=== PATIENT | female | born 1995 | race Caucasian/White ===

== ENCOUNTER → 2020-07-08 11:16 | Outpatient (BNVA) | payer SELFPAY | PROVIDERS: Family Provider General Practice; Visit Provider Family Medicine | DX: F32.9 Major depressive disorder, single episode, unspecified (principal); F32.2 Major depressive disorder, single episode, severe without psychotic features; R45.851 Suicidal ideations; Z72.51 High risk heterosexual behavior; Z12.4 Encounter for screening for malignant neoplasm of cervix | CPT/HCPCS: 88175 ==